=== PATIENT | male | born 1950 | race African-American/Black ===

== ENCOUNTER 2017-04-12 08:47 | Day surgery (SDC) | payer MEDICARE, OTHER ==
--- NOTE | ~2017-04-12 | OP ---
Record Of Operation [facility] [address] [place]. [address] NAME: FRANCISCO SIMENTAL : 52 STATUS : [facility]#: [id number] AGE: 66 ADM/REG DATE : 04/12/17 MR#: [id number] REPORT SERV DATE: 04/12/17 DICTATED BY: AWIAS SILVESTRE DATE: 04/12/17 REPORT STATUS : Draft TRANSCRIBED BY: CRYSTAL DATE: 04/12/17 DATE OF PROCEDURE: 04/12/2017 PREOPERATIVE DIAGNOSIS: Colon cancer. POSTOPERATIVE DIAGNOSIS: Colon cancer. OPERATION PERFORMED: Right internal jugular Port-A-Cath placement under ultrasound and fluoroscopic guidance. ANESTHESIA: MAC plus local. ESTIMATED BLOOD LOSS: Less than 10 mL. IV FLUIDS: Adequate. INDICATION FOR PROCEDURE: Mr. Simental is a 66-year-old gentleman, diagnosed with metastatic colon cancer. He is brought to the operating room today for a Port-A-Cath placement for IV access. DESCRIPTION OF OPERATION: After appropriate sedation, the patient was prepped and draped in proper sterile fashion. Ultrasound probe was placed on the right neck. He had a patent and pliable right internal jugular vein. Skin and subcutaneous tissues around the right neck and right chest wall were infiltrated with local anesthesia. Right internal jugular vein was then cannulated using a 14-gauge needle under ultrasound guidance. A guidewire was then fed under fluoroscopic guidance just above the right heart. A transverse incision was made at the right chest wall. Subcutaneous tissues were incised down the pectoralis fascia and the pocket was bluntly dissected. An introducer sheath was then placed over the guidewire. A catheter was then fed through the introducer sheath with the tip being just above the right heart. The catheter was tunneled subcutaneously to the port pocket and secured to the port. Port was secured to the chest wall using 3-0 Vicryl suture. The port was flushed and aspirated, flushed and aspirated easily. We confirmed placement once again radiographically with the tip being just above the right heart. The skin was closed using interrupted 3-0 Vicryl sutures. Steri-Strips and dressings were then placed. The patient was taken to the recovery room in satisfactory condition. VIV/CRYSTAL Awais Silvestre M.D. / [id number] CC: Record Of Operation [facility] [address] [place]. [address] NAME: FRANCISCO SIMENTAL : 52 STATUS : [facility] PAT#: [id number] AGE: 66 ADM/REG DATE : 04/12/17 MR#: [id number] REPORT SERV DATE: 04/12/17 DICTATED BY: AWAIS SILVESTRE DATE: 04/12/17 REPORT STATUS : Draft TRANSCRIBED BY: MODL DATE: 04/12/17 Earl Lomeli M.D.
[~2017-04-12 08:47] MED LIST: ALEVE220 MG PO; CELEXA10 PO; COZAAR100 MG PO; MELATONIN10 M2 PO; MEVACOR PO; MULTIVIT/MIN PO; NORCO1 TA1 PO; PRILO PO; PROBIOTIC PO
[2017-04-12 09:29] LABS: BUN (BLOOD UREA NITROGEN) 15 MG/DL (6-23); CALCIUM, SERUM 8.7 MG/DL (8.5-10.4); CHLORIDE, SERUM 104 MMOL/L (96-112); CO2 (CARBON DIOXIDE) 31 MMOL/L (24-34); CREATININE 0.99 MG/DL (0.70-1.30); GFR AFRICAN AMERICAN 92 ML/MIN (>=60); GFR NON AFRICAN AMERICAN 80 ML/MIN (>=60); GLUCOSE, SERUM 107 MG/DL (60-99); POTASSIUM, SERUM 4.2 MMOL/L (3.5-5.3); SODIUM, SERUM 138 MMOL/L (135-148)
== END 2017-04-12 14:06 | disposition home or self-care (01) ==
LOC: SDC 08:47
PROVIDERS: Specialist
PROC: B513YZA Fluoroscopy of Right Jugular Veins using Other Contrast, Guidance (ICD-10-PCS; 2017-04-12)
PROC: 05HM33Z Insertion of Infusion Device into Right Internal Jugular Vein, Percutaneous Approach (ICD-10-PCS; principal; 2017-04-12 10:30)
DX: C18.9 Malignant neoplasm of colon, unspecified (principal); I10 Essential (primary) hypertension; G47.33 Obstructive sleep apnea (adult) (pediatric); Z98.890 Other specified postprocedural states
CPT/HCPCS: 71010; 76000; 80048; 93005; C1788; J0690; J2250; J2405; J3010